=== PATIENT | female | born 1980 | race American Indian/Alaskan Native ===

== ENCOUNTER → 2024-10-24 | Outpatient (CLI) | payer BC, SELFPAY ==
--- NOTE | 2024-10-24 | XR_ITS ---
Examination: Retroperitoneal ultrasound, complete Technique: Multiple high resolution grayscale images of the retroperitoneum obtained, including kidneys and bladder. Exam date and time:October 24, 2024 0819 hours INDICATIONS: Lower back point and pelvic pain one week FINDINGS: Right kidney 11.8 cm cortex 1.3 cm Left kidney 12.1 cm cortex 0.8 cm Mild bilateral renal parenchyma scar formation No hydronephrosis No bladder mass or bladder calculi Bladder prevoid volume 117 cc IMPRESSION: Bilateral renal cortical thinning Mild bilateral renal parenchymal scar formation No hydronephrosis
--- NOTE | 2024-10-24 | XR_ITS ---
Examination: Lumbar spine, 5 views Technique: Lumbar spine AP, lateral, coned lateral lower lumbar spine, bilateral obliques 5 views Exam date and time: October 16, 2024 0848 hours INDICATIONS: Lower back pain beginning one week ago. FINDINGS: Satisfactory alignment lumbar vertebral bodies No lumbar fracture No significant lumbar disc narrowing Minimal lumbar spondylosis IMPRESSION: Minimal lumbar spondylosis
== END | disposition home or self-care (01) ==
LOC: CDIM 07:37
PROVIDERS: PCP Nurse Practitioner Family; Referring Provider Nurse Practitioner Family; Visit Provider Nurse Practitioner Family
DX: M47.816 Spondylosis without myelopathy or radiculopathy, lumbar region (principal); N28.89 Other specified disorders of kidney and ureter
CPT/HCPCS: 72110; 76770

== ENCOUNTER → 2025-02-19 | Outpatient (CLI) | payer BC, OTHER, SELFPAY ==
--- NOTE | 2025-02-19 11:50 | XR_ITS ---
Examination: Breast ultrasound complete, bilateral Date and time of exam: February 19, 2025 1137 hours INDICATIONS: Patient states right breast lump 6:00 position note is beginning 5 days ago Technique: Real-time grayscale ultrasonographic imaging bilateral breasts, including all 4 quadrants as well as nipple retroareolar and axillary regions. Findings: Sonographic images right breast 6:00 nodule indistinct margins 14 x 9 x 13 mm Sonographic images left breast 3:00 cyst 4 x 4 millimeter IMPRESSION: BI-RADS Category 4: Suspicious for malignancy Suspicious mass 6:00 position right breast 14 x 9 x 13 mm, biopsy is needed to exclude breast carcinoma, this nodule is amenable to ultrasound-guided breast biopsy for diagnosis
--- NOTE | 2025-02-19 12:17 | XR_ITS ---
Examination: Diagnostic digital mammography, bilateral Computer aided detection 3-D breast Tomosynthesis, bilateral Date and time of exam: February 19, 2025, 1244 hours INDICATIONS: Patient states lump in the right breast note is beginning 6 days ago, strong family history, sister, breast cancer Technique: Nonmagnified MLO, CC views of the breasts to been obtained, reconstructed from 3-D Tomosynthesis images. R2 computer aided detection program utilized for evaluation of suspicious masses and/or abnormal calcifications. 3-D Tomosynthesis images obtained. Findings: The breasts are heterogeneously dense, which may obscure small masses 6:00 nodule right breast indistinct margins, 14 mm Impression: BI-RADS Category 4: Suspicious for malignancy Suspicious mass 6:00 position right breast, also depicted on right breast sonogram today Biopsy is needed to exclude breast carcinoma, this mass is amenable to ultrasound-guided breast biopsy for diagnosis.
== END | disposition home or self-care (01) ==
LOC: CDIM 11:19
PROVIDERS: PCP Nurse Practitioner Family; Referring Provider Nurse Practitioner Family; Visit Provider Nurse Practitioner Family
DX: R92.343 Mammographic extreme density, bilateral breasts (principal); N63.15 Unspecified lump in the right breast, overlapping quadrants
CPT/HCPCS: 76641; 77062; 77066; G0279

== ENCOUNTER 2025-05-21 07:47 | Outpatient (RCR) | payer BC, OTHER, SELFPAY | END 2025-05-29 23:59 | disposition home or self-care (01) | LOC: SCTC 07:47 | PROVIDERS: PCP Nurse Practitioner Family; Referring Provider Surgery; Visit Provider Radiology Therapeutic Radiology | DX: Z51.0 Encounter for antineoplastic radiation therapy (principal); Z51.11 Encounter for antineoplastic chemotherapy; C50.811 Malignant neoplasm of overlapping sites of right female breast; C77.3 Secondary and unspecified malignant neoplasm of axilla and upper limb lymph nodes; Z17.0 Estrogen receptor positive status [ER+]; Z17.21 Progesterone receptor positive status; Z17.32 Human epidermal growth factor receptor 2 negative status; Z90.11 Acquired absence of right breast and nipple | CPT/HCPCS: 77014; 77290; 77295; 77300; 77334; 96402; 99213; J1950; Q3014; G0463 ==

== ENCOUNTER 2025-06-24 08:08 | Outpatient (RCR) | payer BC, OTHER, SELFPAY ==
--- NOTE | 2025-06-01 12:44 | CTCSNOTE_ITS ---
[facility] [address] [place], [place] [address] Simple Simulation Note Date: 06/01/2025 MR#: [id number] Name: ANTONY COLE : 1980 Port was taken and the field size location and blocks were checked. (A) The port was noted to be in ideal position along with its blocks. Electronically signed by: Taye Salazar MD, NIKIR 06/01/2025 12:41 PM
== END 2025-06-28 23:59 | disposition home or self-care (01) ==
LOC: SCTC 08:08
PROVIDERS: PCP Nurse Practitioner Family; Referring Provider Nurse Practitioner Family; Visit Provider Radiology Therapeutic Radiology
DX: Z51.0 Encounter for antineoplastic radiation therapy (principal); Z51.11 Encounter for antineoplastic chemotherapy; C50.811 Malignant neoplasm of overlapping sites of right female breast; Z17.0 Estrogen receptor positive status [ER+]; Z17.21 Progesterone receptor positive status; Z17.32 Human epidermal growth factor receptor 2 negative status; Z90.11 Acquired absence of right breast and nipple
CPT/HCPCS: 77280; 77290; 77300; 77332; 77336; 77412; 77417; 96402; J1950

== ENCOUNTER → 2025-07-12 | Outpatient (CLI) | payer BC, OTHER, SELFPAY ==
--- NOTE | 2025-07-12 15:30 | ECHO_ITS ---
Patient Info Name: Anastacio Maria Age: 45 years : 1980 Gender: Female Ht: 163 cm Wt: 100 kg BSA: 2.17 m2 BP: 136 / 100 mmHg HR: 85 bpm Exam Date: 07/12/2025 3:10 PM Admit Date: 07/12/2025 Site: [facility] Room Number: OP Patient Status: P Technical Quality: Fair Exam Type: CA echo doppler complete Real Estate Investor: Kamila Jones Ordering Physician: Fco Amin Referring Physician: Fco Amin Study Info Indications Malignant neoplasm of overlapping sites of right female destin - Primary Location: SDIM Left Ventricular Outflow Tract Name Value Normal LVOT 2D LVOT Diameter 2.0 cm LVOT Doppler LVOT Peak Velocity 103 cm/s LVOT Mean Gradient 2 mmHg LVOT VTI 26 cm LVOT VTI/AV VTI Ratio 1.0 LVOT Stroke Volume 82 ml Pulmonic Valve Name Value Normal PV Doppler PV Peak Velocity 102 cm/s Mitral Valve Name Value Normal MV Doppler MV Decel [place] 525 cm/s2 MV PHT 44 ms MV Area (PHT) 5.0 cm2 4.0-5.0 MV Diastolic Function MV E Peak Velocity 80 cm/s MV A Peak Velocity 87 cm/s MV E/A 0.9 MV Annular TDI MV Septal e' Velocity 8.1 cm/s MV E/e' (Septal) 9.9 MV Lateral e' Velocity 9.0 cm/s MV E/e' (Lateral) 8.8 MV e' Average 8.54 cm/s MV E/e' (Average) 9.3 Tricuspid Valve Name Value Normal TV Regurgitation Doppler TR Peak Velocity 156 cm/s Estimated PAP/RSVP RA Pressure 3 mmHg <=5 PA Systolic Pressure 13 mmHg <36 RV Systolic Pressure 13 mmHg <36 TV Annular TDI TV Lateral Marah s' Velocity 16.4 cm/s >=9.5 Aortic Valve Name Value Normal AV Doppler AV Peak Velocity 148 cm/s AV Mean Gradient 5 mmHg AV VTI 27 cm AV Area (Cont Eq VTI) 3.1 cm2 >=3.0 AV Area (Cont Eq Horace) 2.2 cm2 AV DI (Horace) 0.70 AV Regurgitation 2D LVOT Area 3.1 cm2 Ventricles Name Value Normal LV Dimensions 2D/MM IVS Diastolic Thickness (2D) 0.8 cm 0.6-0.9 LVID Diastole (2D) 4.8 cm 3.8-5.2 LVIW Diastolic Thickness (2D) 0.9 cm 0.6-0.9 LVID Systole (2D) 3.1 cm 2.2-3.5 LVOT Diameter 2.0 cm LV Mass (2D Cubed) 137.08 g 67.00-162.00 LV Mass Index (2D Cubed) 63 g/m2 43-95 Relative Wall Thickness (2D) 0.38 <=0.42 IVS/LVIW Diastolic Thickness (2D) 0.89 0.00-1.50 LV Fractional Shortening/Ejection Fraction 2D/MM LV Fractional Shortening (2D) 35 % 27-45 LV EF (2D Teichholz) 65 % RV Dimensions 2D/MM TV Lateral Marah s' Velocity 16.4 cm/s >=9.5 Atria Name Value Normal LA Dimensions LA Dimension (MM) 4.2 cm 2.7-3.8 LA Volume (4C A-L) 37 ml LA Volume (BP A-L) 41 ml Left Ventricle Left ventricular chamber dimension is normal. Left ventricular systolic function is normal with visually estimated ejection fraction of 60-65%. There is normal geometry noted in the left ventricle. Left ventricular segmental wall motion is normal. There is normal diastolic function in the left ventricle. Right Ventricle Right ventricular chamber is not well visualized. Left Atrium Left atrial chamber dimension is mildly enlarged. Right Atrium Right atrial chamber dimension is normal. Aortic Valve The aortic valve is trileaflet. There is no aortic valve sclerosis. There is no aortic valve stenosis with a peak velocity of 148 cm/s, mean gradient of 5 mmHg, and aortic valve area of 3.1 cm2. There is no aortic valve regurgitation. Pulmonic Valve The pulmonic valve is normal. There is no pulmonic valve stenosis. There is no pulmonic regurgitation. Mitral Valve The mitral valve has normal leaflets. There is no mitral valve stenosis. There is trace mitral valve regurgitation. Tricuspid Valve The tricuspid valve leaflets are normal. There is no tricuspid valve stenosis. There is trace tricuspid valve regurgitation. No pulmonary hypertension, estimated pulmonary arterial systolic pressure is 13 mmHg and systemic blood pressure of 136 mmHg in systole. Pericardium/Pleural The pericardium appears normal. There is no pericardial effusion. No pleural effusion visualized. Inferior Vena Cava Normal inferior vena cava with >50% collapse upon inspiration consistent with normal right atrial pressure, 3 mmHg. Aorta The aortic measurements are indexed to age and body surface area. The aortic root at the sinus of Valsalva is not well visualized. The prox ascending aorta is not well visualized. Summary 1. Left ventricle size is normal and systolic function is normal. Estimated ejection fraction is 60-65%. There is normal diastolic function. 2. The right ventricle is not well visualized. 3. There is trace mitral and tricuspid valve regurgitation noted. 4. The left atrium is mildly enlarged. The right atrium is normal. 5. Normal IVC with estimated RA pressure 3 mmHg. Report Signatures Finalized by Ana Lilia Arreola on 07/12/2025 07:43 PM
== END | disposition home or self-care (01) ==
LOC: SDIM 07-16 07:49
PROVIDERS: PCP Nurse Practitioner Family; Referring Provider Internal Medicine Hematology & Oncology; Visit Provider Internal Medicine Hematology & Oncology
DX: I08.1 Rheumatic disorders of both mitral and tricuspid valves (principal); I51.7 Cardiomegaly; C50.811 Malignant neoplasm of overlapping sites of right female breast
CPT/HCPCS: 93306

== ENCOUNTER 2025-07-21 07:48 | Outpatient (RCR) | payer BC, OTHER, SELFPAY ==
--- NOTE | 2025-06-29 09:05 | CTCTRTNOTE_ITS ---
[facility] [address] [place], [place] [address] Weekly Management Date: 06/29/2025 ?? Name: ANTONY KELSEY Briseno.: 1980 A. Patient is currently at 4005 cGy.699 E boost B. Patient is tolerating treatment well. C. Resume radiation therapy. Electronically signed by: Taye Salazar M.D. 06/29/2025 9:02 AM
--- NOTE | 2025-06-29 11:04 | CTCFLWUP_ITS ---
Patient: ANTONY MARIA : 1980 Page 4 of 6 FOLLOW UP NOTE DATE OF SERVICE: 06/29/2025 NAME: ANTONY MARIA ACCOUNT: [id number] : 1980 AGE: 45 INTERVAL HISTORY: Patient doing well. She is yet to start tamoxifen. Patient has taken Lupron shots and have no side effects. Patient is on radiation ONCOLOGY HISTORY: DIAGNOSIS: Malignant neoplasm of overlapping sites of right female breast [ICD10] C50.811 DATE OF DIAGNOSIS: 04/30/2025 STAGE/TNM: IB T1c N1mi M0 TREATMENT HISTORY: Care?Plan Start?Date Cycle Day Intent Lupron?Depot?3.75?monthly 05/21/2025 1 28 Induction-Primary HISTORY OF PRESENT ILLNESS: 45-year-old female is here to establish care. Patient works in coding and billing. Patient's sister also had breast cancer and underwent bilateral mastectomy chemotherapy radiation. Patient's genetic testing was negative for hereditary cancers. Patient underwent lumpectomy and had Oncotype DX as 16. OTHER MEDICAL HISTORY/CONDITIONS: Oncotype Dx 15 distance recurrence at 5 years with antiendocrine therapy alone 6% chemotherapy benefit 2.7% Invasive ductal carcinoma right breast - 03/04/25 [place] Right breast lumpectomy with Guide [place] node biopsy - 04/06/25 x 3 - last 2016 Cholecystectomy - 1998 Appendectomy - age 16 OTHER MEDICAL HISTORY/CONDITIONS: Invasive ductal carcinoma right breast - 03/04/25 [place] Right breast lumpectomy with Guide [place] node biopsy - 04/06/25 x 3 - last 2016 Cholecystectomy - 1998 Appendectomy - age 16 FAMILY HISTORY: Sibling:?Sister?-?breast?-?dx?age?41 Cancer History:?Mat 1st cousin - uterine - dx age 51 SOCIAL HISTORY: Occupational?History:?Billing and Coding - [employer] Education?Level:?Completed High School Marital?Status:?Life?Partner Tobacco?Use:?Denies ETOH Use:?Quit 2010- Drank 12 pck beer daily x 8yrs Drug?Note:?Quit few yrs ago - Marijuana daily x 1 yr Social?History?Note:?Lives?with?partner MAKE UP AR[employer]ANGER HISTORY: Menarche?-?Age:?11 Date?LMP:?04/30/2025 Hormone?Use:? control medication x 13 yrs :?6 Live?Births:?5 Age?1st?:?18 Gynecological?Note:?1?miscarriage MEDICATIONS: 1. abemaciclib - 150 mg 42 tab twice daily 2. eszopiclone - 1 mg 1 tab Every day before sleep 3. ibuprofen - 800 mg 1 tab Every 8 Hours 4. SSD - Twice a Day 5. tamoxifen - 20 mg 1 tab Daily 6. tirzepatide (weight loss) - 5 mg/0.5 mL 5 mg weekly Medications Last Reconciled by Umu Ching MD on 06/29/2025 ALLERGIES: Penicillins; codeine sulfate; hydrocodone-acetaminophen; levofloxacin REVIEW OF SYSTEMS: A complete 14-point review of systems was performed and is negative except as noted in interval history. PHYSICAL EXAMINATION: VITAL SIGNS: Temperature?98, B/P?154/87 Weight?223?lbs (Change?since?06/22/25:?0.8?lbs) PAIN: 0 - No pain ECOG Performance Status: 0 - Asymptomatic and fully active GENERAL APPEARANCE: Appears well, in no apparent distress, appropriately interactive. HEENT: Normocephalic, no temporal wasting, normal conjunctiva, no scleral icterus, normal hearing, lips without lesions, neck normal range of motion. CARDIOVASCULAR: Not assessed. PULMONARY: Normal respiratory effort, no respiratory distress or use of accessory muscles, speaking in full sentences, no tachypnea. EXTREMITIES: No pedal edema or cyanosis. SKIN: Normal skin appearance. NEUROLOGIC: Alert and oriented x4. PSHYCHIATRIC: Appropriate affect, mood normal, behavior normal, intact thought and speech. LABORATORY DATA: I have personally reviewed and interpreted each of the patient?s relevant lab tests, abnormal findings are below: Date ASSESSMENT/PLAN: Right breast cancer Patient have stage Ib tumor Patient has 1 lymph node with micrometastatic disease less than 2 mm Discussed option of chemotherapy and patient do not want adjuvant chemotherapy secondary to adverse effects And the benefit of only 2.7% Started on Lupron shots and patient have 0 side effects Will check hormone levels to see if patient is in menopause Advised to start taking tamoxifen once radiation is complete Will switch to anastrozole and abemaciclib once hormone results are back Patient is obese and requesting weight loss medicine Obesity has adverse relationship with cancer Will start her on Zepbound 5 mg weekly Side effects discussed with Ms. Maria No history of thyroid cancer in Ms. Maria or family RTC in 4 weeks to review her hormone results Patient is high risk of breast cancer with 1 lymph node positive as well as no chemotherapy received Will do anastrozole and Verzenio for 2 years followed by anastrozole with ovarian suppression for total 7 years and 3 years of tamoxifen Echo and EKG ordered RTC in 4 weeks ORDERS: Order # Description [id number] Estradiol + Gonadotropin (Fsh) + Gonadotropin; Luteinizing Hormone (Lh) [id number] MD Follow Up 4 Week [id number] Comprehensive Metabolic Panel - 12 + CBC with Auto Diff + [id number] RETURN TO CLINIC: I reviewed the diagnosis, prognosis, and recommended treatment/procedure options with the patient (and/or their legal sales representative public utilities), including the potential benefits, risks, side effects and alternative therapies. We also discussed the option of no treatment and the possibility of clinical trial participation, if applicable. All questions were addressed, and they demonstrated understanding. They provided informed consent to proceed with the proposed plan of care. BILLING AND COMPLIANCE: I reviewed external records from providers outside my specialty as summarized above. I spent a total of 50 minutes on this patient?s care on the day of their visit excluding time spent related to any billed procedures. This time includes time spent with the patient as well as time spent documenting in the medical record, reviewing patients records and tests, obtaining history, placing orders, communicating with other healthcare professionals, counseling the patient, family or caregiver, and/or care coordination for the diagnoses above. Electronically Signed by: Fco Amin MD T: 11:01 AM CC: PCP: Deedee Landa (tuleriver) Referring: Deedee Landa (tuleriver) This document was completed utilizing speech recognition software. Grammatical errors, random word insertions, pronoun errors, and incomplete sentences are an occasional consequence of this system due to software limitations, ambient noise, and hardware issues. Any formal questions or concerns about the content, text or information contained within the body of this dictation should be directly addressed to the provider for clarification.
== END 2025-07-29 23:59 | disposition home or self-care (01) ==
LOC: SCTC 07:48
PROVIDERS: PCP Nurse Practitioner Family; Referring Provider Nurse Practitioner Family; Visit Provider Radiology Therapeutic Radiology
DX: Z51.0 Encounter for antineoplastic radiation therapy (principal); Z51.11 Encounter for antineoplastic chemotherapy; C50.811 Malignant neoplasm of overlapping sites of right female breast; Z17.0 Estrogen receptor positive status [ER+]; Z17.21 Progesterone receptor positive status; Z17.32 Human epidermal growth factor receptor 2 negative status; Z90.11 Acquired absence of right breast and nipple
CPT/HCPCS: 77336; 77412; 96402; 99212; J1950; G0463